=== PATIENT | male | born 1940 | race Caucasian/White ===

== ENCOUNTER 2020-04-22 19:46 | Inpatient (IN) | payer MEDICARE, OTHER ==
[~2020-04-22] VITALS: Ht 185.5 cm; Wt 106.4 kg
[2020-04-22 20:16] LABS: BASOPHILS % (AUTO) 0 % (0-10); EOSINOPHILS % (AUTO) 0 % (0-10); HEMATOCRIT 39 % (40-54); HEMOGLOBIN 12.9 G/DL (13.3-17.7); LYMPHOCYTES % (AUTO) 11 % (12-44); MEAN CORPUSCULAR HEMOGLOBIN 34 PG (25-34); MEAN CORPUSCULAR HGB CONC 34 G/DL (32-36); MEAN CORPUSCULAR VOLUME 100 FL (80-99); MEAN PLATELET VOLUME 9.3 FL (7.4-10.4); MONOCYTES % (AUTO) 11 % (0-12); NEUTROPHILS % (AUTO) 78 % (42-75); PLATELET COUNT 223 10^3/uL (130-400); WHITE BLOOD COUNT 5.3 10^3/uL (4.3-11.0)
[2020-04-22 20:17] LABS: LYMPHOCYTES # (AUTO) 0.6 X 10^3 (1.0-4.0); MONOCYTES # (AUTO) 0.6 X 10^3 (0.0-1.0); NEUTROPHILS # (AUTO) 4.1 X 10^3 (1.8-7.8)
--- NOTE | 2020-04-22 20:26 | ED General ---
General Stated Complaint: COVID+,OXYGEN LOW Source of Information: Patient History of Present Illness Date Seen by Provider: Apr 22, 2020 Time Seen by Provider: 19:54 Initial Comments 79-year-old male presenting with complaints of fatigue and shortness of breath. He was diagnosed with COVID last week and he thinks around 13 April. He had been feeling fatigued and run down in the last few days. He continues to have intermittent fevers. He had his check his oxygen level today and it was in the mid to upper 80s at home. He has cough with occasional productive sputum. He and his were concerned about his oxygen level and continued fever and fatigue so he came [facility] be [facility]. He has not had any chest pains, nausea, vomiting, diarrhea. Allergies and Home Medications Allergies Coded Allergies: No Known Drug Allergies (Unverified , 04/22/20) Home Medications Amlodipine Besylate 5 Mg Tablet, 5 MG PO BID, (Reported) Atorvastatin Calcium 40 Mg Tablet, 40 MG PO DAILY, (Reported) Azathioprine 50 Mg Tablet, 100 MG PO BID, (Reported) Carvedilol 12.5 Mg Tablet, 12.5 MG PO BID, (Reported) Take 12.5 mg by mouth in the morning and 25 mg (2 tabs) in the evening Doxazosin Mesylate 1 Mg Tablet, 1 MG PO HS, (Reported) Lisinopril 40 Mg Tablet, 40 MG PO DAILY, (Reported) Pyridostigmine [place] 60 Mg Tablet, 60 MG PO TID, (Reported) Patient Home Medication List Home Medication List Reviewed: Yes Review of Systems Review of Systems Constitutional: chills, fever, malaise, weakness EENTM: nose congestion Respiratory: cough, phlegm, short of breath Cardiovascular: No chest pain Gastrointestinal: No nausea, No vomiting Genitourinary: no symptoms reported Musculoskeletal: other (generalized body aches) Skin: no symptoms reported Psychiatric/Neurological: Weakness (fatigue and general malaise/weakness) Past Wqovpgf-Xfsvgl-Tppppo Hx Past Med/Social Hx: Reviewed Nursing Past Med/Soc Hx Past Medical History Respiratory: No Cardiac: Yes High Cholesterol, Hypertension Neurological: Yes (Myasthenia Gravis) Genitourinary: Yes Benign Prostatic Hyperpl Gastrointestinal: No Endocrine: No HEENT: No Psychosocial: No Physical Exam Vital Signs Vital Signs - First Documented 04/22/20 04/22/20 19:55 20:00 Temp 37.0 Pulse 70 Resp 18 B/P (MAP) 135/66 (89) Pulse Ox 88 O2 Delivery Room Air O2 Flow Rate 3.00 FiO2 95 Capillary Refill : Height, Weight, BMI Height: '" Weight: lbs. oz. kg; BMI Method: General Appearance: No Apparent Distress, WD/WN HEENT: PERRL/EOMI; No Moist Mucous Membranes (dry mucous membranes); TM Abnormal (L) (TM clear with some effusion present), TM Abnormal (R) (TM clear with some effusion present) Neck: Full Range of Motion, Supple Respiratory: Chest Non Tender, No Accessory Muscle Use, No Respiratory Distress, Decreased Breath Sounds Cardiovascular: Regular Rate, Rhythm, Normal Peripheral Pulses Gastrointestinal: No Pulsatile Mass, Non Tender, Soft Rectal: Deferred Extremity: Normal Capillary Refill, No Pedal Edema Neurologic/Psychiatric: Alert, Oriented x3, ophthalmic surgeon II-XII Norm as Tested Skin: Normal Color, Warm/Dry Focused Exam Lactate Level 04/22/20 20:25: Lactic Acid Level 1.30 Lactic Acid Level Laboratory Tests Test 04/22/20 20:25 Lactic Acid Level 1.30 MMOL/L (0.50-2.00) Progress/Results/Core Measures Suspected Sepsis SIRS Temperature: Pulse: Respiratory Rate: Laboratory Tests 04/22/20 20:07: White Blood Count 5.3 Blood Pressure / Mean: 04/22/20 20:25: Lactic Acid Level 1.30 Laboratory Tests 04/22/20 20:07: Creatinine 1.20, INR Comment 1.0, Platelet Count 223, Total Bilirubin 1.0 Results/Orders Lab Results Laboratory Tests Test 04/22/20 20:07 04/22/20 20:25 04/22/20 21:10 Range/Units White Blood Count 5.3 4.3-11.0 10^3/uL Red Blood Count 3.84 L 4.35-5.85 10^6/uL Hemoglobin 12.9 L 13.3-17.7 G/DL Hematocrit 39 L 40-54 % Mean Corpuscular Volume 100 H 80-99 FL Mean Corpuscular Hemoglobin 34 25-34 PG Mean Corpuscular Hemoglobin Concent 34 32-36 G/DL Red Cell Distribution Width 13.6 10.0-14.5 % Platelet Count 223 130-400 10^3/uL Mean Platelet Volume 9.3 7.4-10.4 FL Immature Granulocyte % (Auto) 0 % Neutrophils (%) (Auto) 78 H 42-75 % Lymphocytes (%) (Auto) 11 L 12-44 % Monocytes (%) (Auto) 11 0-12 % Eosinophils (%) (Auto) 0 0-10 % Basophils (%) (Auto) 0 0-10 % Neutrophils # (Auto) 4.1 1.8-7.8 X 10^3 Lymphocytes # (Auto) 0.6 L 1.0-4.0 X 10^3 Monocytes # (Auto) 0.6 0.0-1.0 X 10^3 Eosinophils # (Auto) 0.0 0.0-0.3 10^3/uL Basophils # (Auto) 0.0 0.0-0.1 10^3/uL Immature Granulocyte # (Auto) 0.0 0.0-0.1 10^3/uL Prothrombin Time 13.4 12.2-14.7 SEC INR Comment 1.0 0.8-1.4 Activated Partial Thromboplast Time 38 H 24-35 SEC Sodium Level 132 L 135-145 MMOL/L Potassium Level 4.2 3.6-5.0 MMOL/L Chloride Level 98 98-107 MMOL/L Carbon Dioxide Level 21 21-32 MMOL/L Anion Gap 13 5-14 MMOL/L Blood Urea Nitrogen 20 H 7-18 MG/DL Creatinine 1.20 0.60-1.30 MG/DL Estimat Glomerular Filtration Rate 58 BUN/Creatinine Ratio 17 Glucose Level 111 H 70-105 MG/DL Calcium Level 8.4 L 8.5-10.1 MG/DL Corrected Calcium 9.0 8.5-10.1 MG/DL Total Bilirubin 1.0 0.1-1.0 MG/DL Aspartate Amino Transf (AST/SGOT) 22 5-34 U/L Alanine Aminotransferase (ALT/SGPT) 9 0-55 U/L Alkaline Phosphatase 47 40-136 U/L Troponin I < 0.30 <0.30 NG/ML C-Reactive Protein 7.02 H <0.50 MG/DL Total Protein 7.2 6.4-8.2 GM/DL Albumin 3.3 3.2-4.5 GM/DL Lactic Acid Level 1.30 0.50-2.00 MMOL/L Blood Gas Puncture Site R. RADIAL Blood Gas Patient Temperature UNK Arterial Blood pH 7.46 H 7.37-7.43 Arterial Blood Partial Pressure CO2 34 L 35-45 MMHG Arterial Blood Partial Pressure O2 78 L 79-93 MMHG Arterial Blood HCO3 24 23-27 MMOL/L Arterial Blood Total CO2 25.2 21.0-31.0 MMOL/L Arterial Blood Oxygen Saturation 96 94-100 % Arterial Blood Base Excess 0.8 -2.5-2.5 MMOL/L Kevan Test YES-POS Blood Gas Ventilator Setting NO Blood Gas Inspired Oxygen 3 L My Orders Orders - MILA CUETO MD Monitor-Rhythm Ecg Trace Only (04/22/20 20:01) Ed Iv/Invasive Line Start (04/22/20 20:01) Cbc With Automated Diff (04/22/20 20:01) Comprehensive Metabolic Panel (04/22/20 20:01) Crp Fs (04/22/20 20:01) Troponin I Fs (04/22/20 20:01) Protime With Inr (04/22/20 20:) Partial Thromboplastin Time (04/22/20 20:01) Ekg Tracing (04/22/20 20:01) Arterial Blood Gas (04/22/20 20:01) Blood Culture (04/22/20 20:01) Lactic Acid Analyzer (04/22/20 20:01) Chest 1 View Ap/Pa Only (04/22/20 20:01) O2 (04/22/20 20:03) Dexamethasone Oral Soln (Ed) (Decadron I (04/22/20 21:00) Azithromycin Injection (Zithromax Inject (04/22/20 21:00) Medications Given in ED Current Medications Medications Dose Ordered Sig/Bhargavi Route Start Time Stop Time Status Last Admin Dose Admin Azithromycin 500 mg/Sodium Chloride 250 ml @ 250 mls/hr ONCE ONCE IV 04/22/20 21:00 04/22/20 21:59 DC 04/22/20 21:22 250 MLS/HR Vital Signs/I&O 04/22/20 04/22/20 04/22/20 19:55 20:00 21:34 Temp 37.0 Pulse 70 82 Resp 18 18 B/P (MAP) 135/66 (89) 159/89 Pulse Ox 88 95 95 O2 Delivery Room Air Nasal Cannula Nasal Cannula O2 Flow Rate 3.00 3.00 FiO2 95 Capillary Refill : Progress Note #1: Progress Note check labs, blood cultures, lactic acid, blood gas, chest xray, ECG, cardiac enzymes. His initial O2 sat was 87-88% on room air. With 3 lpm of supplemental oxygen he is 96-98%. Progress Note #2: Time: 20:47 Progress Note Labs show normal WBC count of 5.3 with mild anemia of Hgb 12.9. Chemistry shows mild elevation of BUN to 20 and Cr 1.2 with GFR 58. Troponin is negative at <0.3. CXR shows bilateral basilar infiltrates and patchy opacities for pneumonia but no effusion or mass. ECG is sinus rhythm without acute ST elevation. Pt more comfortable on supplemental oxygen and resting in room. Progress Note #3: Time: 20:59 Progress Note d/w Dr. Diehl and she accepted pt for admit for supplemental oxygen and treat with dexamethasone and azithromycin from here in the ED. 2120 ABG shows pH 7.46/pCO2 34/pO2 78 on 3 Liters/min of oxygen by n.c.. Lactic acid 1.3. ECG Initial ECG Impression Date: Apr 22, 2020 Initial ECG Impression Time: 20:30 Initial ECG Rate: 67 Initial ECG Rhythm: Normal Sinus Initial ECG Comparisson: No Previous ECG Available Comment normal sinus rhythm with a heart rate of [address] interval 204 ms. He has a right bundle branch and left anterior fascicular block. There is no acute ST elevation. His QT interval is 473 ms with a QTc interval 500 ms. There is no prior tracing in the system for comparison. Diagnostic Imaging Diagonstic Imaging: Xray Plain Films/CT/US/NM/MRI: chest Comments NAME: CORY SORTO [facility] REC#: [id number] PT STATUS: REG ER : 1940 PHYSICIAN: MILA CUETO MD ADMIT DATE: 04/22/20/ER FS Draft Date of Exam:04/22/20 CHEST 1 VIEW AP/PA ONLY INDICATION: Shortness of breath. Covid infection. EXAMINATION: Frontal chest was obtained at 8:07 p.m. COMPARISON: There is no prior study for comparison. FINDINGS: Heart and mediastinal silhouette are normal in appearance. There is some mild patchy infiltrate in the left midlung and base. There is some mild infiltrate in the right base. There is some mild right midlung atelectasis. There is no pneumothorax or pleural fluid. IMPRESSION: Mild bibasilar infiltrates with some mild right midlung atelectasis. No pneumothorax or pleural fluid. Dictated on workstation # [id number] Dict: 04/22/202022 Trans: 04/22/202025 [facility] [id number] Interpreted by: ANEL MARCOS MD Electronically signed by: Departure Communication (Admissions) Time/Spoke to Admitting Phy: 20:59 d/w Dr. Diehl for Hospitalist service and she accepted the unassigned admit. Will start on dexamethasone, and cover with zithromax for possible atypical pneumonia. Impression Primary Impression: Acute hypoxemic respiratory failure due to COVID-19 Additional Impressions: Pneumonia due to COVID-19 virus Shortness of breath Fatigue Qualified Codes: R53.83 - Other fatigue Viral syndrome Disposition: 30 STILL A PATIENT Condition: Stable Admissions Decision to Admit Reason: Admit from ER (General) Decision to Admit/Date: Apr 22, 2020 Time/Decision to Admit Time: 20:59 Departure-Patient Inst. Referrals: PEBBLES MAYERS MD (PCP) Primary Care Physician MILA CUETO MD Apr 22, 2020 20:26
[2020-04-22] MEDS ORDERED: ATOR40TA70 PO (20:29)
[2020-04-22] MEDS ORDERED: LISI40TA PO (20:29)
[2020-04-22] MEDS ORDERED: CARV12.53 PO (20:29)
[2020-04-22] MEDS ORDERED: AMLO-250 PO (20:29)
[2020-04-22] MEDS ORDERED: PYRI60TA PO (20:29)
[2020-04-22] MEDS ORDERED: AZAT50TA16 PO (20:29)
[2020-04-22] MEDS ORDERED: DOXA1TAB2 PO (20:29)
[2020-04-22 20:39] LABS: BUN/CREATININE RATIO 17; CARBON DIOXIDE 21 MMOL/L (21-32); CHLORIDE 98 MMOL/L (98-107); GFR ESTIMATED 58; GLUCOSE 111 MG/DL (70-105); POTASSIUM 4.2 MMOL/L (3.6-5.0); SODIUM 132 MMOL/L (135-145)
[2020-04-22 20:40] LABS: ALANINE AMINOTRANSFERASE 9 U/L (0-55); ALBUMIN 3.3 GM/DL (3.2-4.5); ALKALINE PHOSPHATASE 47 U/L (40-136); CALCIUM 8.4 MG/DL (8.5-10.1); TOTAL PROTEIN 7.2 GM/DL (6.4-8.2)
[2020-04-22 20:45] LABS: PROTHROMBIN TIME PATIENT 13.4 SEC (12.2-14.7)
[2020-04-22] MEDS ORDERED: AZITHROMYCIN INJECTION 500 MG in NS (IVPB) 250 ML IV ONE (21:00)
[2020-04-22 21:18] LABS: ABG PCO2 34 MMHG (35-45); ABG PH 7.46 (7.37-7.43); ABG PO2 78 MMHG (79-93)
[2020-04-22 21:19] LABS: ABG BASE EXCESS 0.8 MMOL/L (-2.5-2.5); ABG OXYGEN SATURATION 96 % (94-100); ABG TCO2 25.2 MMOL/L (21.0-31.0); ALLENS TEST YES-POS; INSPIRED O2 3 L; VENTILATOR NO
[2020-04-22] MEDS ORDERED: ACETAMINOPHEN 325 MG TABLET PO PRN (23:30)
[2020-04-22 23:45] VITALS: BP 130/58
[2020-04-23] VITALS (7 sets, daily range): BP systolic 110–142; BP diastolic 55–86
[2020-04-23] MEDS: NS IV 1000 ML 1,000 ML IV SCH ×4 (00:01→20:56)
--- NOTE | 2020-04-23 00:40 | NUR ---
START ALBUTEROL MDI 4PUFFS Q4 AND Q2 PRN FOR SOA. AEROBIKA QID AND PRN. IS QID AND PRN. RT TO REASSESS IN 72H OR SOONER IF INDICATED. Addendum: 04/23/20 at 0040 by DRE CASH RT Amended: Links added.
[2020-04-23] MEDS ORDERED: RT-ALBUTEROL INHALER HFA (VENTOLIN HFA) 18 GM IH PRN (00:45)
--- NOTE | 2020-04-23 01:15 | NUR ---
CORY SORTO admitted to room 421-1, with an admitting diagnosis of covid, pneumonia, hypoxia, on 04/22/20 from [facility] via stretcher, accompanied by staff. CORY SORTO introduced to surroundings, call light, bed controls, phone, TV, temperature control, lights, meal times, smoking policy, visitor policy, side rail policy, bathrooms and showers. Patient Rights given to patient in the handbook. CORY SORTO verbalizes understanding that [facility] is not responsible for the loss or damage to any personal effects or valuables that are kept in the patients posession during their hospitalization.
[2020-04-23] MEDS: RT-ALBUTEROL INHALER HFA (VENTOLIN HFA) 18 GM IH SCH ×6 (02:59→22:23)
[2020-04-23 06:35] LABS: BASOPHILS % (AUTO) 0 % (0-10); EOSINOPHILS % (AUTO) 0 % (0-10); HEMATOCRIT 37 % (40-54); HEMOGLOBIN 12.5 g/dL (13.3-17.7); LYMPHOCYTES # (AUTO) 0.3 10^3/uL (1.0-4.0); LYMPHOCYTES % (AUTO) 7 % (12-44); MEAN CORPUSCULAR HEMOGLOBIN 34 pg (25-34); MEAN CORPUSCULAR HGB CONC 34 g/dL (32-36); MEAN CORPUSCULAR VOLUME 100 fL (80-99); MEAN PLATELET VOLUME 9.1 fL (9.0-12.2); MONOCYTES # (AUTO) 0.2 10^3/uL (0.0-1.0); MONOCYTES % (AUTO) 4 % (0-12); NEUTROPHILS # (AUTO) 4.2 10^3/uL (1.8-7.8); NEUTROPHILS % (AUTO) 88 % (42-75); PLATELET COUNT 206 10^3/uL (130-400); WHITE BLOOD COUNT 4.8 10^3/uL (4.3-11.0)
[2020-04-23 06:56] LABS: ALANINE AMINOTRANSFERASE 13 U/L (0-55); ALBUMIN 3.4 GM/DL (3.2-4.5); ALKALINE PHOSPHATASE 44 U/L (40-136); BILIRUBIN,TOTAL 0.8 MG/DL (0.1-1.0); BUN/CREATININE RATIO 17; CALCIUM 8.3 MG/DL (8.5-10.1); CARBON DIOXIDE 17 MMOL/L (21-32); CHLORIDE 104 MMOL/L (98-107); CREATININE SERUM 1.06 MG/DL (0.60-1.30); GFR ESTIMATED > 60; GLUCOSE 131 MG/DL (70-105); POTASSIUM 4.7 MMOL/L (3.6-5.0); SODIUM 133 MMOL/L (135-145); TOTAL PROTEIN 7.3 GM/DL (6.4-8.2)
[2020-04-23 07:13] LABS: LYMPHOCYTES % (MANUAL) 7 %; MONOCYTES % (MANUAL) 5 %; NEUTROPHILS % (MANUAL) 88 %; RBC MORPH NORMAL
[2020-04-23] MEDS: ENOXAPARIN 40 MG/0.4 ML (LOVENOX) SYR SC SCH (09:22)
[2020-04-23] MEDS ORDERED: NS IV 500 ML 500 ML IV SCH (12:45)
--- NOTE | 2020-04-23 12:50 | History & Physical-Hospitalist ---
History of Present Illness HPI/Chief Complaint Pt is a 79yoCM with a PMH of myasthenia gravis and HTN who presented to the ER duet o shortness of breath. He became symptomatic with COVID19 on 04/13 and was tested shortly afterward and was found to be positive. He reports occasional fevers. He feels tired and has a poor appetite. He complains of cough and mild shortness of breath worse with exertion. His checked his oxygen and noticed it was in the 80s and brought him in for evaluation. He remained hypoxic and was admitted for further management. Source: patient Date Seen 04/23/20 Time Seen by a Provider: 12:45 Attending Physician Jailene Diehl MD PCP Monster Dickinson MD Referring Physician Date of Admission Apr 22, 2020 at 20:59 Home Medications & Allergies Home Medications Reviewed patient Home Medication Reconciliation performed by pharmacy medication reconciliations reactor technician and/or nursing. Patients Allergies have been reviewed. Allergies Allergies Coded Allergies No Known Drug Allergies (Unverified04/22/20) Past Ajkfenh-Inbkbn-Eordfp Hx Past Med/Social Hx: Reviewed Nursing Past Med/Soc Hx Patient Social History Alcohol Use: Denies Use Recreational Drug Use: No Smoking Status: Light Tobacco Smoker 2nd Hand Smoke Exposure: No Recent Foreign Travel: No Contact w/other who traveled: No Recent Hopitalizations: No Recent Infectious Disease Expo: No Immunizations Up To Date Date of Influenza Vaccine: Feb 20, 2021 Past Medical History Cardiac: High Cholesterol, Hypertension Genitourinary: Benign Prostatic Hyperpl History of Blood Disorders: No Review of Systems Constitutional: fever, malaise EENTM: no symptoms reported Respiratory: cough, short of breath Cardiovascular: No chest pain, No edema, No palpitations Gastrointestinal: No abdominal pain, No constipation, No diarrhea; loss of appetite; No nausea, No vomiting Genitourinary: no symptoms reported Musculoskeletal: no symptoms reported Skin: no symptoms reported Psychiatric/Neurological: No Symptoms Reported Physical Exam Physical Exam Vital Signs Vital Signs - First Documented 04/22/20 04/22/20 19:55 20:00 Temp 37.0 Pulse 70 Resp 18 B/P (MAP) 135/66 (89) Pulse Ox 88 O2 Delivery Room Air O2 Flow Rate 3.00 FiO2 95 Capillary Refill : Less Than 3 Seconds Height, Weight, BMI Height: '" Weight: lbs. oz. kg; 30.92 BMI Method: General Appearance: No Apparent Distress, WD/WN HEENT: PERRL/EOMI, Moist Mucous Membranes Neck: Normal Inspection, Supple Respiratory: No Accessory Muscle Use; No Crackles; Decreased Breath Sounds, Other (on 4lpm) Cardiovascular: Regular Rate, Rhythm, No Murmur Gastrointestinal: Normal Bowel Sounds, Non Tender, Soft Extremity: Normal Capillary Refill, No Calf Tenderness, No Pedal Edema Neurologic/Psychiatric: Alert, Oriented x3, Normal Mood/Affect Skin: Normal Color, Warm/Dry Results Results/Procedures Labs Laboratory Tests 04/24/20 05:16 04/25/20 05:17 Patient resulted labs reviewed. Imaging: Reviewed Imaging Report Imaging [facility] [place] NAME: CORY SORTO [facility] REC#: [id number] PT STATUS: REG ER : 1940 PHYSICIAN: MILA CUETO MD ADMIT DATE: 04/22/20/ER FS Signed Date of Exam:04/22/20 CHEST 1 VIEW AP/PA ONLY INDICATION: Shortness of breath. Covid infection. EXAMINATION: Frontal chest was obtained at 8:07 p.m. COMPARISON: There is no prior study for comparison. FINDINGS: Heart and mediastinal silhouette are normal in appearance. There is some mild patchy infiltrate in the left midlung and base. There is some mild infiltrate in the right base. There is some mild right midlung atelectasis. There is no pneumothorax or pleural fluid. IMPRESSION: Mild bibasilar infiltrates with some mild right midlung atelectasis. No pneumothorax or pleural fluid. Dictated by: Dictated on workstation # [id number] Dict: 04/22/202022 Trans: 04/22/202127 [facility] [id number] Interpreted by: ANEL MARCOS MD Electronically signed by: ANEL MARCOS MD 04/22/202127 Assessment/Plan Admission Diagnosis Acute hypoxic respiratory failure due to COVID19 Admission Status: Inpatient Order (span 2 midnights) Reason for Inpatient Admission: see below Assessment and Plan Acute hypoxic respiratory failure due to COVID19 Start remdesivir Consented to EUA status of convalescent plasma, ordered Continue decadron Continue IVF MAT protocol IS Lovenox Myasthenia gravis Resume home meds Pharmacy to attempt to get Mestinon in PT/OT HTN Continue home meds HLD continue home meds DVT ppx: Lovenox Diagnosis/Problems Diagnosis/Problems (1) Myasthenia gravis (2) Hypoxia (3) Acute hypoxemic respiratory failure due to COVID-19 Status: Acute (4) Viral syndrome Status: Acute CONSUELO VALADEZ MD Apr 23, 2020 12:50
[2020-04-23] MEDS ORDERED: REMDESIVIR INJ 200 MG in NS (IVPB) 210 ML IV NR (13:00)
[2020-04-23] MEDS: dexAMETHasone 6 MG TAB (DECADRON) PO SCH (13:31)
--- NOTE | 2020-04-23 13:42 | NUR ---
"RD ASSESSMENT PMHx: HTN; hypercholesterolemia; myasthenia gravis; BPH; PT INTERACTION: Received dietary consult for MST score. Note pt is currently in COVID isolation, per chart review. Note all diet information for consult is per Mera BROWN, or per chart review. Mera states current appetite appears okay. Note PO intake 75% x1meal, per chart review. Mera states recent issues with diarrhea that she is aware of, and that his last BM was 04/19. Note pt not currently on bowel regimen per chart review. Note unable to determine recent wt hx, per chart review. Note unable to complete visual assessment d/t isolation precautions. Given PO intake, wt hx, and visual assessment, it is difficult to determine if pt meets criteria for malnutrition per ASPEN guidelines. Est. kcal needs: 7463-6228 kcal | 15-20 kcal/kg Est. Pro needs: 85-106 g Pro | 0.8-1.0 g Pro/kg PES STATEMENT: Given current PO intake, no nutrition diagnosis at this time (NO-1.1). INTERVENTION: Continue with current diet order of Regular diet. Will continue to follow and reassess as pt needs, intake, and status change. Geovanny KLEIN, MS RD LD [phone] cell"
[2020-04-23] MEDS ORDERED: ASCO-262 PO (14:13)
[2020-04-23] MEDS ORDERED: AZAT50TA16 PO (14:13)
[2020-04-23] MEDS ORDERED: VITA80006 PO (14:13)
[2020-04-23] MEDS ORDERED: CYAN-41 PO (14:13)
[2020-04-23] MEDS ORDERED: VITA-272 PO (14:13)
[2020-04-23] MEDS ORDERED: ASPI-1238 PO (14:13)
[2020-04-23] MEDS ORDERED: POTA20TA15 PO (14:13)
[2020-04-23] MEDS ORDERED: BUME1TAB8 PO (14:13)
[2020-04-23] MEDS ORDERED: CHOL10007 PO (14:13)
[2020-04-23] MEDS ORDERED: ACET-2267 PO (14:13)
[2020-04-23] MEDS ORDERED: CARV12.53 PO (14:16)
--- NOTE | 2020-04-23 14:35 | Physical Therapy Evaluation ---
PT Evaluation-General Medical Diagnosis Admission Date Apr 22, 2020 at 20:59 Medical Diagnosis: covid 19 PNA Onset Date: Apr 22, 2020 Therapy Diagnosis Therapy Diagnosis: impaired mobility, strength, enduance Precautions Precautions/Isolations: Contact Isolation, Droplet Isolation, Fall Prevention Referral Physician: Bryant Reason for Referral: Evaluation/Treatment Medical History Additional Medical History Past Medical History Cardiac: High Cholesterol, Hypertension Genitourinary: Benign Prostatic Hyperpl myasthenia gravis Reviewed History: Yes Social History Home: Single Level Current Living Status: Spouse Entry Into Home: Level entry level financial analyst entry in the back, 2 steps in the front Prior Prior Level of Function SCALE: Activities may be completed with or without assistive devices. 2-Lakvishasw-zyaymql completes the activity by him/herself with no assistance from a helper. 5-Set-up or Clean-up Assistance-helper sets up or cleans up; patient completes activity. Monroe assists only prior to or following the activity. 4-Supervision or Touching Assistance-helper provides verbal cues and/or touching/steadying and/or contact guard assistance as patient completes activity. Assistance may be provided throughout the activity or intermittently. 3-Partial/Moderate Assistance-helper does LESS THAN HALF the effort. Monroe lifts, holds or supports trunk or limbs, but provides less than half the effort. 2-Substantial/Maximal Assistance-helper does MORE THAN HALF the effort. Monroe lifts or holds trunk or limbs and provides more than half the effort. 0-Jyukatauo-zvbggi does ALL the effort. Patient does none of the effort to complete the activity. Or, the assistance of 2 or more helpers is required for the patient to complete the activity. If activity was not attempted, code reason: 7-Patient Refused. 9-Not Applicable-not attempted and the patient did not perform the activity before the current illness, exacerbation or injury. 10-Not Attempted due to Environmental Limitations-(lack of equipment, weather restraints, etc.). 88-Not Attempted due to Medical Conditions or Safety Concerns. Bed Mobility: 6 Transfers (B,C,W/C): 6 Gait: 6 Indoor Mobility (Ambulation): Independent PT Evaluation-Current Subjective Patient in recliner pre tx, agrees to PT, has no complaints of pain but is slightly SOB just with speaking. Pt/Family Goals to be independent at home Objective Patient Orientation: Person, Place, Situation Attachments: Oxygen, IV ROM/Strength ROM Lower Extremities WBL Strength Lower Extremities LLE (hip flexion 3+/5, knee flexion 5/5, knee extension 5/5, dorsiflexion 5/5), RLE (hip flexion 3+/5, knee flexion 5/5, knee extension 5/5, dorsiflexion 3+/5) Sensory Hearing: Impaired Sensation Right Lower Extremit: Intact Sensation Left Lower Extremity: Intact Transfers Sit to Stand (QC): 4 Chair/Fdk-ut-Grhmn Xfer(QC): 4 CGA Gait Does the Patient Walk?: Yes Mode of Locomotion: Walk Anticipated Mode of Locomotion: Walk Walk 10 feet (QC): 4 Distance: 40' Comments/Gait Description Patient ambulates approx 40' in his room pushing his own IV pole with CGA, occasional unsteadiness but no roque LOB, he was slightly SOB after ambulation Balance Sitting Static: Normal Sitting Dynamic: Normal Standing Static: Good Standing Dynamic: Fair Treatment BLE seated exercises x20 (AP, LAQ) Assessment/Needs Patient has impaired mobility, strength, endurance. He is slightly unsteady with ambulation. Patient in recliner post tx with nurse call, phone, tray, all needs met. Rehab Potential: Fair PT Roving Carrier Goals Roving Carrier Goals PT Chcf Goals Time Frame: Apr 30, 2020 Roll Left & Right (QC): 6 Sit to Lying (QC): 6 Lying-Sitting on Side/Bed(QC): 6 Sit to Stand (QC): 6 Chair/Vqz-bl-Kswrr Xfer(QC): 6 Walk 10 feet (QC): 6 Walk 50ft with 2 Turns (QC): 6 PT Plan Problem List Problem List: Activity Tolerance, Functional Strength, Safety, Balance, Gait, Transfer, Bed Mobility Treatment/Plan Treatment Plan: Continue Plan of Care Treatment Plan: Bed Mobility, Education, Functional Activity Tommy, Functional Strength, Gait, Safety, Therapeutic Exercise, Transfers Treatment Duration: Apr 30, 2020 Frequency: 6 times per week Estimated Hrs Per Day: .25 hour per day Patient and/or Family Agrees t: Yes Safety Risks/Education Patient Education: Gait Training, Transfer Techniques, Correct Positioning, Safety Issues Teaching Recipient: Patient Teaching Methods: Demonstration, Discussion Response to Teaching: Reinforcement Needed Discharge Recommendations Plan Patient will perform bed mobility and transfer training, balance and endurance training, functional strengthening, stair training, gait training, and education, to improve functional mobility and independence at home. Therapy Discharge Recommendati: Scheduled Assistance, Home & Family Time/GCodes Time In: 1410 Time Out: 1424 Total Billed Treatment Time: 14 Total Billed Treatment 1 visit SANDRA Kearns' RACHEL RAMIRES PT Apr 23, 2020 14:35
--- NOTE | 2020-04-23 14:40 | NUR ---
UNABLE TO REACH THE PT- CALLED HIS (JAIDA) AND WENT THRU THE EXT MED HISTORY TO COMPLETE THE MED REC JAIDA WAS ABLE TO NAME ALL THE PTS MEDICATIONS WELL WHEN/HOW HE TAKES EACH- ALL HER INFORMATION MATCHED THE EXT MED HISTORY OTC MEDS: ASPIRIN 81 VIT A VIT B-12 VIT C VIT D VIT E TYLENOL
--- NOTE | 2020-04-23 15:26 | Occupational Therapy Eval ---
OT Evaluation-General/PLF Medical Diagnosis Admission Date Apr 22, 2020 at 20:59 Medical Diagnosis: covid 19 PNA Onset Date: Apr 22, 2020 Therapy Diagnosis Therapy Diagnosis: weakness Precautions Precautions/Isolations: Contact Isolation, Droplet Isolation, Fall Prevention Referral Physician: Bryant Referral Reason: Evaluation/Treatment Medical History Additional Medical History Myasthenia gravis, HTN, benign prostatic hypepl Current History ED with fatigue and SOB. Diagnosed with COVID-19 around 04/13/2020 Social History Home: Single Level Current Living Status: Spouse Entry Into Home: Level Entry ADL-Prior Level of Function SCALE: Activities may be completed with or without assistive devices. 5-Ajmuzsxwmy-vgjiasu completes the activity by him/herself with no assistance from a helper. 5-Set-up or Clean-up Assistance-helper sets up or cleans up; patient completes activity. [place] assists only prior to or following the activity. 4-Supervision or Touching Assistance-helper provides verbal cues and/or touching/steadying and/or contact guard assistance as patient completes activity. Assistance may be provided throughout the activity or intermittently. 3-Partial/Moderate Assistance-helper does LESS THAN HALF the effort. [place] lifts, holds or supports trunk or limbs, but provides less than half the effort. 2-Substantial/Maximal Assistance-helper does MORE THAN HALF the effort. [place] lifts or holds trunk or limbs and provides more than half the effort. 3-Sxrnfqwzo-wstlst does ALL the effort. Patient does none of the effort to complete the activity. Or, the assistance of 2 or more helpers is required for the patient to complete the activity. If activity was not attempted, code reason: 7-Patient Refused. 9-Not Applicable-not attempted and the patient did not perform the activity before the current illness, exacerbation or injury. 10-Not Attempted due to Environmental Limitations-(lack of equipment, weather restraints, etc.). 88-Not Attempted due to Medical Conditions or Safety Concerns. ADL PLOF Comments Pt reports being independent with ADLS at PLOF including bathing and dressing. His completes the cooking and cleaning. Self Care: Independent Functional Cognition: Independent OT Current Status Subjective Pt seated in recliner, agreeable to OT evaluation. Nurse aide present stating pt is transferring rooms. Mental Status/Objective Patient Orientation: Person, Place, Time, Situation Attachments: IV, Oxygen Current Glasses/Contacts: Yes Upper Extremity ROM WFL, BUE shoulder flexion to approx 140 degrees Upper Extremity Coordination WFL Upper Extremity Sensation WFL ADL-Treatment Eating (QC): 6 (Per clinical judgement pt would be independent with task.) Oral Hygiene (QC): 6 (Per clinical judgement pt would be independent with task.) Other Treatments OT educated pt on purpose and benefit of OT, he verbalize understanding. Pt provided information about PLOF And home set up and participated in UE screen. Nurse aide present stating pt is transferring rooms. OT assisted pt with transferring from recliner to EOB using FWW, SBA. Pt required cues with maneuvering IV pole. Pt then transferred supine independently. Pt's belongings gathered and pt transported to new room. Pt requests to transfer to recliner, transferring to EOB independently, then used FWW to transfer to recliner, cues with managing IV and O2 lines. Pt expresses that he has no concerns with completing ADLs upon discharging home. Pt would benefit from skilled OT services in order to increase functional endurance and strength as pt appeared SOB with transfers and with talking. Post tx, pt seated in recliner, call light in reach and all needs met. Education OT Patient Education: Correct positioning, Energy conservation, Modified ADL techniques, Progress toward Goal/Update tx plan, Purpose of tx/functional activities, Rehab process Teaching Recipient: Patient Teaching Methods: Discussion Response to Teaching: Verbalize Understanding OT Longterm Goals Longterm Goals Time Frame: May 05, 2020 Toileting Hygiene (QC): 6 Shower/Bathe Self (QC): 6 Upper Body Dressing (QC): 6 Lower Body Dressing (QC): 6 On/Off Footwear (QC): 6 1=Demonstrate adherence to instructed precautions during ADL tasks. 2=Patient will verbalize/demonstrate understanding of assistive devices/modifications for ADL. 3=Patient will improve strength/tolerance for activity to enable patient to perform ADL's. OT Education/Plan Problem List/Assessment Assessment: Decreased Activ Tolerance, Decreased UE Strength, Impaired Funct Balance, Impaired I ADL's Pt would benefit from short term skilled OT services in order to maximize LOF and improve strength/functional endurance for safe return home. Discharge Recommendations Plan/Recommendations: Continue POC Treatment Plan/Plan of Care Patient would benefit from OT for education, treatment and training to promote independence in ADL's, mobility, safety and/or upper extremity function for ADL's. Plan of Care: ADL Retraining, Functional Mobility, UE Funct Exercise/Act Treatment Duration: May 05, 2020 Frequency: 5 times per week Estimated Hrs Per Day: .25 hour per day Rehab Potential: Fair Time/GCodes Start Time: 14:45 Stop Time: 15:03 Total Time Billed (hr/min): 18 Billed Treatment Time 1, PRIYANKA SIMON OT Apr 23, 2020 15:26
[2020-04-23] MEDS ORDERED: BUMETANIDE 1 MG (BUMEX) TAB PO PRN (15:30)
[2020-04-23] MEDS ORDERED: KCL 20 MEQ TAB (K-DUR) PO PRN (15:30)
[2020-04-23] MEDS: ASPIRIN E.C. 81 MG (ECOTRIN) TAB PO SCH (20:48)
[2020-04-23] MEDS: azaTHIOprine (IMURAN) 50 MG TAB PO SCH (20:48)
[2020-04-23] MEDS: CARVEDILOL 12.5 MG (COREG) TABLET PO SCH (20:48)
[2020-04-23] MEDS: doxAzosin 1 MG (CARDURA) TAB PO SCH (20:48)
[2020-04-23] MEDS: amLODIPine 5 MG (NORVASC) TAB PO SCH (20:48)
[2020-04-23] MEDS: PYRIDOSTIGMINE 60 MG TAB (MESTINON) NON-FORMULARY PO SCH ×2 (20:49→20:51)
[2020-04-24] VITALS (8 sets, daily range): BP systolic 114–156; BP diastolic 59–94
[2020-04-24] MEDS: RT-ALBUTEROL INHALER HFA (VENTOLIN HFA) 18 GM IH SCH ×5 (02:15→21:45)
[2020-04-24 05:33] LABS: BASOPHILS % (AUTO) 0 % (0-10); EOSINOPHILS % (AUTO) 0 % (0-10); HEMATOCRIT 39 % (40-54); HEMOGLOBIN 12.9 g/dL (13.3-17.7); LYMPHOCYTES # (AUTO) 0.4 10^3/uL (1.0-4.0); LYMPHOCYTES % (AUTO) 5 % (12-44); MEAN CORPUSCULAR HEMOGLOBIN 33 pg (25-34); MEAN CORPUSCULAR HGB CONC 33 g/dL (32-36); MEAN CORPUSCULAR VOLUME 100 fL (80-99); MEAN PLATELET VOLUME 9.3 fL (9.0-12.2); MONOCYTES # (AUTO) 0.7 10^3/uL (0.0-1.0); MONOCYTES % (AUTO) 9 % (0-12); NEUTROPHILS # (AUTO) 6.5 10^3/uL (1.8-7.8); NEUTROPHILS % (AUTO) 85 % (42-75); PLATELET COUNT 264 10^3/uL (130-400); WHITE BLOOD COUNT 7.7 10^3/uL (4.3-11.0)
[2020-04-24 05:53] LABS: ALBUMIN 3.5 GM/DL (3.2-4.5); CHLORIDE 108 MMOL/L (98-107); POTASSIUM 4.4 MMOL/L (3.6-5.0); SODIUM 137 MMOL/L (135-145)
[2020-04-24 05:54] LABS: CALCIUM 8.1 MG/DL (8.5-10.1)
[2020-04-24 05:55] LABS: GLUCOSE 121 MG/DL (70-105)
[2020-04-24 05:56] LABS: TOTAL PROTEIN 7.5 GM/DL (6.4-8.2)
[2020-04-24 05:57] LABS: BILIRUBIN,TOTAL 0.9 MG/DL (0.1-1.0); CARBON DIOXIDE 18 MMOL/L (21-32)
[2020-04-24 05:59] LABS: ALKALINE PHOSPHATASE 44 U/L (40-136); CREATININE SERUM 0.97 MG/DL (0.60-1.30); GFR ESTIMATED > 60
[2020-04-24 06:00] LABS: BUN/CREATININE RATIO 19
[2020-04-24 06:02] LABS: ALANINE AMINOTRANSFERASE 12 U/L (0-55)
[2020-04-24] MEDS: dexAMETHasone 6 MG TAB (DECADRON) PO SCH (06:23)
[2020-04-24] MEDS: NS IV 1000 ML 1,000 ML IV SCH ×2 (06:25→21:40)
[2020-04-24] MEDS: VITAMIN D3 25 MCG (1,000 UNITS) TABLET PO SCH (08:12)
[2020-04-24] MEDS: ENOXAPARIN 40 MG/0.4 ML (LOVENOX) SYR SC SCH (08:12)
[2020-04-24] MEDS: CARVEDILOL 12.5 MG (COREG) TABLET PO SCH ×2 (08:13→21:41)
[2020-04-24] MEDS: VITAMIN E 180 MG (400 UNITS) CAP PO SCH (08:13)
[2020-04-24] MEDS: ASCORBIC ACID (VIT C) 500 MG TABLET PO SCH (08:13)
[2020-04-24] MEDS: azaTHIOprine (IMURAN) 50 MG TAB PO SCH ×2 (08:13→21:41)
[2020-04-24] MEDS: CYANOCOBALAMIN 1,000 MCG (VITAMIN B-12) TABLET PO SCH (08:13)
[2020-04-24] MEDS: lisINopril 40 MG (PRINIVIL) TABLET PO SCH (08:13)
[2020-04-24] MEDS: amLODIPine 5 MG (NORVASC) TAB PO SCH ×2 (08:14→21:41)
[2020-04-24] MEDS: PYRIDOSTIGMINE 60 MG TAB (MESTINON) NON-FORMULARY PO SCH ×3 (08:14→21:43)
[2020-04-24] MEDS ORDERED: NON-FORMULARY MEDICATION 1 EA EA (Vitamin A 8,000 UNIT) PO SCH (09:00)
[2020-04-24] MEDS ORDERED: NON-FORMULARY MEDICATION 1 EA EA (Ascorbate Calcium (Vitamin C) 500 MG) PO SCH (09:00)
[2020-04-24] MEDS ORDERED: NON-FORMULARY MEDICATION 1 EA EA (Cholecalciferol (Vitamin D3) (Vitamin D3) 25 MCG) PO SCH (09:00)
[2020-04-24] MEDS ORDERED: NON-FORMULARY MEDICATION 1 EA EA (Vitamin E Mixed (Vitamin E) 400 UNIT) PO SCH (09:00)
--- NOTE | 2020-04-24 10:27 | Progress Note - Hospitalist ---
Subjective HPI/CC On Admission Date Seen by Provider: Apr 24, 2020 Time Seen by Provider: 10:23 Pt is a 79yoCM with a PMH of myasthenia gravis and HTN who presented to the ER duet o shortness of breath. He becames symptomatic with COVID19 on 04/13 a Subjective/Events-last exam Pt reports feeling well. No complaints. Still on 4lpm NC. Requesting discharge home. Discussed criteria for discharge and that he was still too acute. Focused Exam Lactate Level 04/22/20 20:25: Lactic Acid Level 1.30 Objective Exam Vital Signs Vital Signs Date Time Temp Pulse Resp B/P (MAP) Pulse Ox O2 Delivery O2 Flow Rate FiO2 04/24/20 07:22 36.6 83 22 116/60 (78) 92 Nasal Cannula 4.00 04/23/20 08:00 95 Capillary Refill : Less Than 3 SecondsLess Than 3 Seconds General Appearance: No Apparent Distress, WD/WN Respiratory: Lungs Clear, No Accessory Muscle Use, Other (on 4lpm NC) Cardiovascular: Regular Rate, Rhythm, No Murmur Extremity: No Calf Tenderness, No Pedal Edema Neurologic/Psychiatric: Alert, Oriented x3 Results/Procedures Lab Laboratory Tests 04/24/20 05:16 Patient resulted labs reviewed. Imaging: Reviewed Imaging Report Assessment/Plan Assessment and Plan Assess & Plan/Chief Complaint Acute hypoxic respiratory failure due to COVID19 Continue remdesivir Consented to EUA status of convalescent plasma, ordered- awaiting arrival Continue decadron Continue IVF- will DC when oral intake picks up MAT protocol IS Lovenox Myasthenia gravis Continue home meds PT/OT HTN Continue home meds HLD continue home meds DVT ppx: Lovenox Diagnosis/Problems Diagnosis/Problems (1) Myasthenia gravis (2) Hypoxia (3) Acute hypoxemic respiratory failure due to COVID-19 Status: Acute (4) Viral syndrome Status: Acute CONSUELO VALADEZ MD Apr 24, 2020 10:26
--- NOTE | 2020-04-24 10:50 | Physical Therapy Daily Note ---
PT Daily Note-Current Subjective Pt presents sitting up in chair upon arrival to room, agreeable to PT treatment at this time. Pt denies pain, reports he is "just ready to go home." Appearance Following session, pt up in chair with call light and tray within reach, All needs met at this time. Mental Status Patient Orientation: Person, Place, Situation Attachments: Oxygen (4L), IV Transfers SCALE: Activities may be completed with or without assistive devices. 0-Rsepqdvser-qjhgzyu completes the activity by him/herself with no assistance from a helper. 5-Set-up or Clean-up Assistance-helper sets up or cleans up; patient completes activity. [place] assists only prior to or following the activity. 4-Supervision or Touching Assistance-helper provides verbal cues and/or touching/steadying and/or contact guard assistance as patient completes activity. Assistance may be provided throughout the activity or intermittently. 3-Partial/Moderate Assistance-helper does LESS THAN HALF the effort. [place] lifts, holds or supports trunk or limbs, but provides less than half the effort. 2-Substantial/Maximal Assistance-helper does MORE THAN HALF the effort. [place] lifts or holds trunk or limbs and provides more than half the effort. 6-Jejpvxwtn-yqtjun does ALL the effort. Patient does none of the effort to complete the activity. Or, the assistance of 2 or more helpers is required for the patient to complete the activity. If activity was not attempted, code reason: 7-Patient Refused. 9-Not Applicable-not attempted and the patient did not perform the activity before the current illness, exacerbation or injury. 10-Not Attempted due to Environmental Limitations-(lack of equipment, weather restraints, etc.). 88-Not Attempted due to Medical Conditions or Safety Concerns. Sit to Stand (QC): 4 Gait Training Distance: 50' Walk 50 ft with 2 Turns(QC): 4 Gait Assistive Device: FWW Pt ambulates with steady gait, no LOB and no increase in SOB following ambulation Exercises Seated Therapy Exercises: Ankle pumps, Hip flexion, Hip abd/add Seated Reps: 15 Assessment Current Status: Good Progress Pt tolerates above well, no increase in symptoms. He continues to be limited by activity tolerance, will continue to progress as able. PT Fpc Goals Fpc Goals PT Chief Guard Goals Time Frame: Apr 30, 2020 Roll Left & Right (QC): 6 Sit to Lying (QC): 6 Lying-Sitting on Side/Bed(QC): 6 Sit to Stand (QC): 6 Chair/Vrc-ty-Bdvfp Xfer(QC): 6 Walk 10 feet (QC): 6 Walk 50ft with 2 Turns (QC): 6 PT Plan Problem List Problem List: Activity Tolerance, Functional Strength, Safety, Balance, Gait, Transfer, Bed Mobility, ROM Treatment/Plan Treatment Plan: Continue Plan of Care Treatment Plan: Bed Mobility, Education, Functional Activity Tommy, Functional Strength, Gait, Safety, Therapeutic Exercise, Transfers Treatment Duration: Apr 30, 2020 Frequency: 6 times per week Estimated Hrs Per Day: .25 hour per day Patient and/or Family Agrees t: Yes Time/GCodes Time In: 935 Time Out: 955 Total Billed Treatment 1 visit GT (20') AKIN SHAH PT Apr 24, 2020 10:50
[2020-04-24] MEDS: REMDESIVIR INJ 100 MG in NS (IVPB) 230 ML IV SCH (12:17)
[2020-04-24] MEDS: doxAzosin 1 MG (CARDURA) TAB PO SCH (21:40)
[2020-04-24] MEDS: ACETAMINOPHEN 500 MG TAB (TYLENOL) PO PRN (21:41)
[2020-04-24] MEDS: ASPIRIN E.C. 81 MG (ECOTRIN) TAB PO SCH (21:41)
--- NOTE | 2020-04-24 22:48 | NUR ---
THIS RN CONTACTED PT'S FOR UPDATE. ALL QUESTIONS ANSWERED. THIS RN INFORMED PT'S THAT I WOULD CONTACT HER WITH ANY CHANGES WITH THE PATIENT THROUGHOUT THE NIGHT.
[2020-04-25] VITALS: BP 95/52
[2020-04-25] MEDS: RT-ALBUTEROL INHALER HFA (VENTOLIN HFA) 18 GM IH SCH ×6 (01:47→21:16)
[2020-04-25 05:36] LABS: ALBUMIN 3.3 GM/DL (3.2-4.5); CHLORIDE 109 MMOL/L (98-107); POTASSIUM 4.1 MMOL/L (3.6-5.0); SODIUM 137 MMOL/L (135-145)
[2020-04-25 05:37] LABS: CALCIUM 7.6 MG/DL (8.5-10.1)
[2020-04-25 05:38] LABS: GLUCOSE 112 MG/DL (70-105); TOTAL PROTEIN 7.1 GM/DL (6.4-8.2)
[2020-04-25 05:39] LABS: CARBON DIOXIDE 20 MMOL/L (21-32)
[2020-04-25 05:40] LABS: BILIRUBIN,TOTAL 0.8 MG/DL (0.1-1.0)
[2020-04-25 05:42] LABS: ALKALINE PHOSPHATASE 42 U/L (40-136); CREATININE SERUM 0.84 MG/DL (0.60-1.30); GFR ESTIMATED > 60
[2020-04-25 05:43] LABS: BUN/CREATININE RATIO 19
[2020-04-25 05:45] LABS: ALANINE AMINOTRANSFERASE 14 U/L (0-55)
[2020-04-25] MEDS: ACETAMINOPHEN 500 MG TAB (TYLENOL) PO PRN (06:26)
[2020-04-25] MEDS: dexAMETHasone 6 MG TAB (DECADRON) PO SCH (06:26)
[2020-04-25 08:00] VITALS: BP 103/66
[2020-04-25] MEDS: ASCORBIC ACID (VIT C) 500 MG TABLET PO SCH (08:33)
[2020-04-25] MEDS: CYANOCOBALAMIN 1,000 MCG (VITAMIN B-12) TABLET PO SCH (08:33)
[2020-04-25] MEDS: VITAMIN D3 25 MCG (1,000 UNITS) TABLET PO SCH (08:33)
[2020-04-25] MEDS: lisINopril 40 MG (PRINIVIL) TABLET PO SCH (08:33)
[2020-04-25] MEDS: amLODIPine 5 MG (NORVASC) TAB PO SCH ×2 (08:33→20:53)
[2020-04-25] MEDS: ENOXAPARIN 40 MG/0.4 ML (LOVENOX) SYR SC SCH (08:33)
[2020-04-25] MEDS: VITAMIN E 180 MG (400 UNITS) CAP PO SCH (08:33)
[2020-04-25] MEDS: CARVEDILOL 12.5 MG (COREG) TABLET PO SCH ×2 (08:34→20:52)
[2020-04-25] MEDS: PYRIDOSTIGMINE 60 MG TAB (MESTINON) NON-FORMULARY PO SCH ×3 (08:34→20:52)
[2020-04-25] MEDS: azaTHIOprine (IMURAN) 50 MG TAB PO SCH ×2 (08:34→20:53)
--- NOTE | 2020-04-25 08:45 | Progress Note - Hospitalist ---
Subjective HPI/CC On Admission Date Seen by Provider: Apr 25, 2020 Time Seen by Provider: 08:42 Pt is a 79yoCM with a PMH of myasthenia gravis and HTN who presented to the ER duet o shortness of breath. He becames symptomatic with COVID19 on 04/13 a Subjective/Events-last exam Pt reports doing well. Still on 4lpm. Focused Exam Lactate Level 04/22/20 20:25: Lactic Acid Level 1.30 Objective Exam Vital Signs Vital Signs Date Time Temp Pulse Resp B/P (MAP) Pulse Ox O2 Delivery O2 Flow Rate FiO2 04/25/20 07:00 45 04/25/20 06:53 87 Nasal Cannula 4.00 04/25/20 00:00 35.9 17 95/52 (66) 04/23/20 08:00 95 Capillary Refill : Less Than 3 SecondsLess Than 3 Seconds General Appearance: No Apparent Distress, WD/WN Respiratory: No Accessory Muscle Use, Other (coarse breath sounds) Cardiovascular: Regular Rate, Rhythm, No Murmur Neurologic/Psychiatric: Alert, Oriented x3 Results/Procedures Lab Laboratory Tests 04/25/20 05:17 Patient resulted labs reviewed. Imaging: Reviewed Imaging Report Assessment/Plan Assessment and Plan Assess & Plan/Chief Complaint Acute hypoxic respiratory failure due to COVID19 Continue remdesivir s/p 1 unit convalescent plasma Continue decadron MAT protocol IS Lovenox Myasthenia gravis Continue home meds PT/OT HTN Continue home meds HLD continue home meds DVT ppx: Lovenox Diagnosis/Problems Diagnosis/Problems (1) Myasthenia gravis (2) Hypoxia (3) Acute hypoxemic respiratory failure due to COVID-19 Status: Acute (4) Viral syndrome Status: Acute CONSUELO VALADEZ MD Apr 25, 2020 08:45
[2020-04-25] MEDS: REMDESIVIR INJ 100 MG in NS (IVPB) 230 ML IV SCH (13:12)
[2020-04-25 16:29] VITALS: BP 140/69
[2020-04-25] MEDS: ASPIRIN E.C. 81 MG (ECOTRIN) TAB PO SCH (20:53)
[2020-04-25] MEDS: doxAzosin 1 MG (CARDURA) TAB PO SCH (20:53)
[2020-04-25 23:57] VITALS: BP 144/59
[2020-04-26] MEDS: RT-ALBUTEROL INHALER HFA (VENTOLIN HFA) 18 GM IH SCH ×4 (02:23→14:34)
[2020-04-26] MEDS: dexAMETHasone 6 MG TAB (DECADRON) PO SCH (06:02)
[2020-04-26 06:55] LABS: ALBUMIN 3.4 GM/DL (3.2-4.5); CHLORIDE 109 MMOL/L (98-107); POTASSIUM 3.9 MMOL/L (3.6-5.0); SODIUM 139 MMOL/L (135-145)
[2020-04-26 06:57] LABS: GLUCOSE 106 MG/DL (70-105); TOTAL PROTEIN 7.1 GM/DL (6.4-8.2)
[2020-04-26 06:58] LABS: CARBON DIOXIDE 21 MMOL/L (21-32)
[2020-04-26 06:59] LABS: BILIRUBIN,TOTAL 0.9 MG/DL (0.1-1.0)
[2020-04-26 07:01] LABS: ALKALINE PHOSPHATASE 44 U/L (40-136); CREATININE SERUM 0.78 MG/DL (0.60-1.30); GFR ESTIMATED > 60
[2020-04-26 07:02] LABS: BUN/CREATININE RATIO 18
[2020-04-26 07:04] LABS: ALANINE AMINOTRANSFERASE 15 U/L (0-55)
[2020-04-26 07:26] VITALS: BP 135/68
[2020-04-26] MEDS: azaTHIOprine (IMURAN) 50 MG TAB PO SCH (09:57)
[2020-04-26] MEDS: CARVEDILOL 12.5 MG (COREG) TABLET PO SCH (09:57)
[2020-04-26] MEDS: ASCORBIC ACID (VIT C) 500 MG TABLET PO SCH (09:57)
[2020-04-26] MEDS: amLODIPine 5 MG (NORVASC) TAB PO SCH (09:57)
[2020-04-26] MEDS: CYANOCOBALAMIN 1,000 MCG (VITAMIN B-12) TABLET PO SCH (09:57)
[2020-04-26] MEDS: lisINopril 40 MG (PRINIVIL) TABLET PO SCH (09:57)
[2020-04-26] MEDS: VITAMIN E 180 MG (400 UNITS) CAP PO SCH (09:57)
[2020-04-26] MEDS: VITAMIN D3 25 MCG (1,000 UNITS) TABLET PO SCH (09:57)
[2020-04-26] MEDS: ENOXAPARIN 40 MG/0.4 ML (LOVENOX) SYR SC SCH (09:58)
[2020-04-26] MEDS: PYRIDOSTIGMINE 60 MG TAB (MESTINON) NON-FORMULARY PO SCH ×2 (09:59→14:33)
--- NOTE | 2020-04-26 11:19 | NUR ---
pt O2 did not drop below 91% during the walk study but pt did complain of shortness of breath. once pt was seated and took a few deep breaths then he recovered quickly. O2 was NOT needed during this walk study. Addendum: 04/26/20 at 1119 by BOAZ BRADLEY RT Amended: Links added.
--- NOTE | 2020-04-26 11:50 | Discharge Summary ---
Discharge Summary Hospital Course Was the Problem List Reviewed?: Yes Problems/Dx: (1) Acute hypoxemic respiratory failure due to COVID-19 Status: Acute (2) Myasthenia gravis (3) Hypoxia (4) Viral syndrome Status: Acute Hospital Course Date of Admission: Apr 22, 2020 at 20:59 Admission Diagnosis: acute respiratory failure due to COVID-19 Family Physician/Provider: Michael Dickinson MD Date of Discharge: 04/26/20 Discharge Diagnosis: acute respiratory failure due to COVID-19 Hospital Course: Gerald Daniels is a 79-year-old male with past medical history of myasthenia gravis who was admitted with acute respiratory failure due to COVID-19. He was treated with Decadron, Remdesivir, and convalescent plasma. His oxygen requirement improved and an oxygen study at the time of discharge revealed no oxygen need. His other medical conditions remained stable and his course was uncomplicated. He was discharged home in stable condition. He should follow-up with his primary care physician in about a week. Labs and Pending Lab Test: Laboratory Tests 04/26/20 05:36: Sodium Level 139, Potassium Level 3.9, Chloride Level 109H, Carbon Dioxide Level 21, Anion Gap 9, Blood Urea Nitrogen 14, Creatinine 0.78, Estimat Glomerular Filtration Rate > 60, BUN/Creatinine Ratio 18, Glucose Level 106H, Calcium Level 8.0L, Corrected Calcium 8.5, Total Bilirubin 0.9, Aspartate Amino Transf (AST/SGOT) 36H, Alanine Aminotransferase (ALT/SGPT) 15, Alkaline Phosphatase 44, Total Protein 7.1, Albumin 3.4 Home Meds Active Reported Carvedilol 12.5 Mg Tablet 25 Mg PO HS TAKES 2 (12.5MG) TABS Aspirin EC (Aspirin) 81 Mg Tablet.dr 81 Mg PO HS Tylenol Extra Strength (Acetaminophen) 500 Mg Tablet 1,000 Mg PO Q8H PRN Vitamin E (Vitamin E Mixed) 400 Unit Capsule 400 Unit PO DAILY Vitamin D3 (Cholecalciferol (Vitamin D3)) 25 Mcg Capsule 25 Mcg PO DAILY Vitamin C (Ascorbate Calcium) 500 Mg Tablet 500 Mg PO DAILY Vitamin B-12 (Cyanocobalamin (Vitamin B-12)) 1,000 Mcg Tablet 1,000 Mcg PO DAILY Vitamin A 8,000 Unit Capsule 8,000 Unit PO DAILY Bumetanide 1 Mg Tablet 1 Mg PO BID PRN Potassium Chloride 20 Meq Tab.er.prt 20 Meq PO DAILY PRN Imuran (Azathioprine) 50 Mg Tablet 100 Mg PO BID TAKES 2 (50MG) TABS Amlodipine Besylate 5 Mg Tablet 5 Mg PO BID Carvedilol 12.5 Mg Tablet 12.5 Mg PO DAILY Doxazosin Mesylate 1 Mg Tablet 1 Mg PO HS Lisinopril 40 Mg Tablet 40 Mg PO DAILY Atorvastatin Calcium 40 Mg Tablet 40 Mg PO HS Pyridostigmine Thomson 60 Mg Tablet 60 Mg PO TID Assessment/Pt Instructions take medications as prescribed. Follow-up with your primary care physician. Return with worsening shortness of breath or if you feel like you're getting worse. Discharge Planning: <30 minutes discharge planning Discharge Instructions Discharge Diet: No Restrictions Activity as Tolerated: Yes Discharge Physical Examination Vital Signs Vital Signs Date Time Temp Pulse Resp B/P (MAP) Pulse Ox O2 Delivery O2 Flow Rate FiO2 04/26/20 11:17 93 04/26/20 11:06 Room Air 04/26/20 10:06 64 1.00 04/26/20 07:26 35.9 18 135/68 (90) 04/23/20 08:00 95 General Appearance: No Apparent Distress, Obese Respiratory: Lungs Clear, Normal Breath Sounds, No Respiratory Distress Cardiovascular: Regular Rate, Rhythm, No Edema, No Murmur Gastrointestinal: Normal Bowel Sounds, Non Tender, Soft Extremity: Normal Inspection, Non Tender, No Pedal Edema Skin: Normal Color, Warm/Dry Neurologic/Psychiatric: Alert, Oriented x3, No Motor/Sensory Deficits, Normal Mood/Affect Allergies: Coded Allergies: No Known Drug Allergies (Unverified , 04/22/20) Copy Copies To 1: MICHAEL DICKINSON MD Discharge Summary Date of Admission Apr 22, 2020 at 20:59 Date of Discharge Discharge Date: Apr 26, 2020 Discharge Time: 11:49 Admission Diagnosis Acute respiratory failure due to COVID-19 Discharge Diagnosis (1) Pneumonia due to COVID-19 virus Status: Acute (2) Acute hypoxemic respiratory failure due to COVID-19 Status: Acute (3) Myasthenia gravis (4) Hypoxia (5) Viral syndrome Status: Acute MONICA BHAKTA MD Apr 26, 2020 11:50
--- NOTE | 2020-04-26 13:33 | D/C HH Face to Face Order ---
D/C Face to Face Orders Reconcile Patient Problems Problems Reviewed?: Yes Instructions for Patient Via [employer], Patient Instructions/FollowUp: follow up with on [facility] PCP Physician to follow Patient: Dickinson Discharge Diet for Home: No Restrictions Patient Data-Allergies,Ht & Wt Patient Allergies: Coded Allergies: No Known Drug Allergies (Unverified , 04/22/20) Home Health Need/Face to Face Date of Face to Face: Apr 26, 2020 Clinical Findings: Generalized weakness and fatigue, Muscle weakness I have seen Pt cgli-zo-[id number]: Yes Discharged To: Home Diagnosis/Conditions: COVID-19 Myasthenia gravis Problems/Diagnosis/Condition: (1) Pneumonia due to COVID-19 virus (2) Myasthenia gravis Patient is Homebound due to: Muscle weakness Homebound Status Due to the above stated illness, injury or surgical procedure (medical condition or diagnosis) and associated clinical findings, the patient is homebound because of his/her inability to leave home except with aid of a supportive device and/or person AND leaving the home requires a considerable and taxing effort or is medically contraindicated. Pt req the following assistanc: Aid of another person Home Health Nursing Orders Home Health Services Order: Nursing Services, Hvac Service Manager-Evaluate & Treat, Physical Therapy-Evaluate & Treat Home Health Infusion Therapy Line Start Date: Apr 22, 2020 Therapy Orders Therapy Orders: OT (must have SN or PT order), Physical Therapy Therapy Specific Orders: Eval assistive deivces, Teach enviro modifications/safety, Gait training, Increase strength/endurance Certify Stmt I certify that this patient is under my care and that I, a nurse practitioner or a physician; a assistant infant toddler teacher working with me, had a face to face encounter that - meets the physician face to face encounter requirements with this patient as dated. MONICA BHAKTA MD Apr 26, 2020 13:33
--- NOTE | 2020-04-26 13:46 | NUR ---
CM/SS: KEVIN Fermin reports that spouse wants pt to have home care in [place]. Plan: Pt will discharge to home with [facility] Summary: Spouse has requested home care services with [facility]. [facility] is contacted and they have talked with spouse about pt discharging today. Information is faxed to [facility] - [phone].
[2020-04-26] MEDS: REMDESIVIR INJ 100 MG in NS (IVPB) 230 ML IV SCH (14:33)
[2020-04-26 16:20] VITALS: BP 135/68
== END 2020-04-26 16:15 | disposition home or self-care (01) | DRG 177 ==
LOC: EDUNIT# 19:46 → ER FS 19:49 → 4TH 20:59 → ER FS 22:15 → 4TH 04-23 14:40
PROVIDERS: ADMIT Internal Medicine; ATTEND Internal Medicine
PROC: XW033E5 Introduction of Remdesivir Anti-infective into Peripheral Vein, Percutaneous Approach, New Technology Group 5 (ICD-10-PCS; principal; 2020-04-23)
PROC: XW13325 Transfusion of Convalescent Plasma (Nonautologous) into Peripheral Vein, Percutaneous Approach, New Technology Group 5 (ICD-10-PCS; 2020-04-24)
DX: U07.1 COVID-19 (principal); J12.82 Pneumonia due to coronavirus disease 2019; J96.01 Acute respiratory failure with hypoxia; I45.2 Bifascicular block; G70.00 Myasthenia gravis without (acute) exacerbation; N40.0 Benign prostatic hyperplasia without lower urinary tract symptoms; I10 Essential (primary) hypertension; E78.00 Pure hypercholesterolemia, unspecified; F17.200 Nicotine dependence, unspecified, uncomplicated; Z73.0 Burn-out
CPT/HCPCS: 36415; 71045; 80053; 82805; 83605; 84484; 85007; 85025; 85027; 85610; 85730; 86141; 86900; 86901; 87040; 93005; 93041; 94640; 94664; 94760; 94761

== ENCOUNTER → 2022-02-06 | Outpatient (CLI) | payer MEDICARE, OTHER ==
[~2022-02-06] MED LIST: ACET-2267 PO; AMLO-250 PO; ASCO-262 PO; ASPI-1238 PO; ATOR40TA70 PO; AZAT50TA16 PO; BUME1TAB8 PO; CARV12.53 PO; CHOL10007 PO; CYAN-41 PO; DOXA1TAB2 PO; LISI40TA9 PO; POTA-179 PO; PYRI60TA PO; VITA-272 PO; VITA80006 PO
== END ==
LOC: LAB FS 09:46
PROVIDERS: ATTEND Thoracic Surgery (Cardiothoracic Vascular Surgery)
DX: I35.0 Nonrheumatic aortic (valve) stenosis (principal); Z20.822 Contact with and (suspected) exposure to COVID-19
CPT/HCPCS: 87636